=== PATIENT | female | born 1990 | race Two or more races ===

== ENCOUNTER 2016-11-19 00:09 | Outpatient (CLI) | payer SELFPAY ==
[~2016-11-19] VITALS: Ht 154.9 cm; Wt 52.0 kg
[~2016-11-19 00:09] MED LIST: TERCONAZOLE-7 VAGINAL CREAM PV SCH
[2016-11-19 00:31] VITALS: BP 119/67
[2016-11-19] MEDS ORDERED: PRENTAB9 PO (00:49)
[2016-11-19 02:16] LABS: BASO % 0.2 % (0.0-1.0); EOS # 0.1 K/mm3 (0.0-0.50); EOS % 1.3 % (0.0-3.0); LARGE UNSTAINED CELL # 0.1 K/mm3 (0.0-0.4); LARGE UNSTAINED CELL % 1.8 % (0.0-4.0); LYMPH # 1.6 K/mm3 (1.5-6.5); LYMPH % 23.9 % (24.0-44.0); MEAN CORPUSCULAR HEMOGLOBIN 25.1 pg (27.0-33.0); MEAN CORPUSCULAR HGB CONC 32.8 g/dl (32.0-36.5); MEAN CORPUSCULAR VOLUME 76.6 fl (80.0-96.0); MONO # 0.4 K/mm3 (0.0-0.8); MONO % 6.3 % (0.0-5.0); NEUTROPHILS # 4.4 K/mm3 (1.8-7.7); NEUTROPHILS % 66.6 % (36.0-66.0); PLATELET COUNT, AUTOMATED 271 k/mm3 (150-450); RED CELL DISTRIBUTION WIDTH 13.8 % (11.5-14.5); WHITE BLOOD COUNT 6.5 K/mm3 (4.0-10.0)
[2016-11-19 03:04] LABS: CONTROL LINE INT CTR LINE PRESENT; HIV SCRN NEGATIVE (NEGATIVE); HIV SCRN1 NEGATIVE (NEGATIVE)
[2016-11-19 03:36] VITALS: BP 117/58
--- NOTE | 2016-11-19 03:40 | REPUSA ---
CLINICAL HISTORY: contractions. TECHNIQUE: Realtime sonographic images were obtained in multiple projections via TA approach. The exa mination was performed by the wall taper helper and still images were submitted for interpretation. COMMENTS: Single, live intrauterine gestation. Transverse lie of the fetus. The head there is to the maternal left position. motion was identified. heart rate 153 beats per minute. Anterior placenta. Unremarkable amniotic fluid. The cervix measures 4.9 cm. The lateral ventricle measures 7.8 mm. Unremarkable maternal adnexa/cul-de-sac. Estimated gestational age 27 weeks and one day. Estimated delivery date on 02/17/2017. Estimated weight 1109 g. Amniotic fluid index 12.7 cm. IMPRESSION: Single, live intrauterine gestation. Thank you for your kind referral of this patient.
[2016-11-19 05:11] VITALS: BP 115/66
[2016-11-21 11:29] LABS: HBsAg Prenatal NEGATIVE (NEGATIVE)
== END 2016-11-19 04:10 | disposition home or self-care (01) ==
LOC: M LDO 00:09
PROVIDERS: ATTEND Advanced Practice Midwife
DX: O62.0 Primary inadequate contractions (principal); Z3A.27 27 weeks gestation of pregnancy; O09.72 Supervision of high risk pregnancy due to social problems, second trimester; Z63.0 Problems in relationship with spouse or partner; O09.32 Supervision of pregnancy with insufficient antenatal care, second trimester; O9A.312 Physical abuse complicating pregnancy, second trimester

== ENCOUNTER 2017-01-31 02:39 | Inpatient (IN) | payer OTHER, SELFPAY ==
[~2017-01-31] VITALS: Ht 154.9 cm; Wt 59.0 kg
[2017-01-31] VITALS (13 sets, daily range): BP systolic 111–149; BP diastolic 62–86
[~2017-01-31 02:39] MED LIST changes: +PRENTAB9 PO; -TERCONAZOLE-7 VAGINAL CREAM PV SCH
[2017-01-31] MEDS ORDERED: PENICILLIN G POTASSIUM IV 5 MU in D5W MINI-BAG PLUS 100 ML IV STA (04:07)
[2017-01-31] MEDS ORDERED: LACTATED RINGER'S 1000 ML IV STA (04:07)
[2017-01-31] MEDS ORDERED: LR 1,000 ML IV SCH (04:07)
[2017-01-31 04:38] LABS: MEAN CORPUSCULAR HEMOGLOBIN 21.4 pg (27.0-33.0); MEAN CORPUSCULAR HGB CONC 30.6 g/dl (32.0-36.5); MEAN CORPUSCULAR VOLUME 69.9 fl (80.0-96.0); RED CELL DISTRIBUTION WIDTH 17.1 % (11.5-14.5); WHITE BLOOD COUNT 7.2 K/mm3 (4.0-10.0)
[2017-01-31] MEDS ORDERED: OXYTOCIN 30 UNITS IN 0.9% NaCl 500ML IV BAG (J2590) As Ordered ONE (04:42)
[2017-01-31 05:16] LABS: CONTROL LINE INT CTR LINE PRESENT; HIV SCRN NEGATIVE (NEGATIVE); HIV SCRN1 NEGATIVE (NEGATIVE)
[2017-01-31] MEDS ORDERED: FENTANYL 2MCG/ML ROPIVACAINE 0.2% IN 0.9% NACL 200ML IVBAG As Ordered ONE (05:31)
[2017-01-31] MEDS ORDERED: OXYTOCIN DRIP 30 UNITS in APPROPRIATE DILUENT 1 EA IV SCH (06:58)
[2017-01-31] MEDS ORDERED: MEASLES,MUMPS,RUBELLA VACCINE INJ (MMR-II) (90707) SC SCH (07:00)
[2017-01-31] MEDS ORDERED: RHOGAM 300 MCG (1500 IU) INJ (J2790) IM SCH (07:00)
[2017-01-31] MEDS ORDERED: METHYLERGONOVINE MALEATE 0.2 MG TAB PO PRN (07:00)
[2017-01-31] MEDS ORDERED: ACETAMINOPHEN 500 MG TAB PO PRN (07:00)
[2017-01-31] MEDS ORDERED: DIBUCAINE 1% OINTMENT 30GM TOP PRN (07:00)
[2017-01-31] MEDS ORDERED: ANUSOL HC CREAM 30GM TOP PRN (07:00)
--- NOTE | 2017-01-31 07:22 | DNPDOC ---
[facility] Delivery Note Delivery Note DATE OF DELIVERY: Jan 31, 2017 at 0630 PREDELIVERY DIAGNOSIS: 38-2/7 weeks' gestation and labor. PROCEDURE: [Spontaneous vaginal delivery]. METAL BONDING PRESS OPERATOR: Abhijeet Klein CNM, DEVIN ANESTHESIA: Epidural. ESTIMATED BLOOD LOSS: 450 mL. FINDINGS: 5 pound 11 ounce female , Score 9/9, nuchal cord times 1 loose. DELIVERY SUMMARY: Patient is a 26-year-old 4 now para 2-1-1-3 who was admitted to labor and delivery with complaints of spontaneous rupture of membrane and contractions. She obtained an epidural for pain management. She progressed to fully dilated at 0626. She pushed to a living female at 0630 in the OA position with restitution to LOT. The anterior shoulder delivered with ease and the corpus immediately followed. A nuchal cord was noted loose 1. The baby was placed on maternal abdomen active and crying without stimulation. The cord was clamped 2 and cut by father of the baby after pulsation ceased. A three-vessel cord was noted. The placenta delivered spontaneously at 0635 with trailing membranes that were removed. Uterine hemostasis was achieved by fundal massage and rapid infusion of IV Pitocin. Inspection of the perineum and the vagina was done and found to have a right labial abrasion and a perineal abrasion that was not repaired. EBL for 50. Apgars 9 and 9. Weight 2580 g, 5 lbs. 11 oz. Mom is going to breast-feed . Mom and baby are in stable condition. ABHIJEET KLEIN CNM Jan 31, 2017 07:22
[2017-01-31] MEDS: DOCUSATE SODIUM 100 MG CAP PO SCH (09:00)
[2017-01-31] MEDS: FERROUS SULFATE 325MG TAB PO SCH ×2 (09:00→20:51)
[2017-01-31] MEDS: PRENATAL VITAMINS CHEWABLE TABLET PO SCH (09:00)
[2017-01-31] MEDS ORDERED: PENICILLIN G POTASSIUM IV 2.5 MU in D5W 100 ML IV SCH (09:00)
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
[2017-01-31] MEDS: IBUPROFEN 800 MG TAB PO PRN (19:57)
[2017-02-01 05:49] VITALS: BP 136/79
[2017-02-01] MEDS: FERROUS SULFATE 325MG TAB PO SCH ×2 (10:13→21:01)
[2017-02-01] MEDS: DOCUSATE SODIUM 100 MG CAP PO SCH (10:13)
[2017-02-01] MEDS: PRENATAL VITAMINS CHEWABLE TABLET PO SCH (10:13)
[2017-02-01] MEDS: IBUPROFEN 800 MG TAB PO PRN (15:56)
[2017-02-01 18:12] VITALS: BP 115/55
[2017-02-02 06:08] VITALS: BP 130/59
[2017-02-02 06:58] LABS: MEAN CORPUSCULAR HEMOGLOBIN 22.1 pg (27.0-33.0); MEAN CORPUSCULAR HGB CONC 31.2 g/dl (32.0-36.5); RED CELL DISTRIBUTION WIDTH 17.6 % (11.5-14.5); WHITE BLOOD COUNT 12.1 K/mm3 (4.0-10.0)
[2017-02-02] MEDS: PRENATAL VITAMINS CHEWABLE TABLET PO SCH (08:23)
[2017-02-02] MEDS: FERROUS SULFATE 325MG TAB PO SCH (08:23)
[2017-02-02] MEDS: DOCUSATE SODIUM 100 MG CAP PO SCH (08:23)
[2017-02-02] MEDS ORDERED: ACET50TA PO (10:24)
[2017-02-02] MEDS ORDERED: IBUP-1114 PO (10:24)
[2017-02-02] MEDS ORDERED: FERR325T3 PO (10:24)
== END 2017-02-02 10:49 | disposition home or self-care (01) | DRG 775 ==
LOC: M LDO 02:39 → M LDI 03:55 → M OBS 09:03
PROVIDERS: ADMIT Advanced Practice Midwife; ATTEND Advanced Practice Midwife
PROC: 10E0XZZ Delivery of Products of Conception, External Approach (ICD-10-PCS; principal; 2017-01-31)
DX: O69.82X0 Labor and delivery complicated by other cord entanglement, without compression, not applicable or unspecified (principal); Z37.0 Single live birth; Z3A.38 38 weeks gestation of pregnancy; Z79.899 Other long term (current) drug therapy; O70.0 First degree perineal laceration during delivery

== ENCOUNTER 2019-06-04 17:23 | Day surgery (SDC) | payer OTHER ==
[~2019-06-04] VITALS: Ht 154.9 cm; Wt 48.6 kg
[~2019-06-04 17:23] MED LIST changes: +FERR325T3 PO; +IBUP-1114 PO; +MAPA500T2 PO
[2019-06-04 18:48] LABS: BASO % 0.4 % (0.0-1.0); EOS # 0.1 10^3/uL (0.0-0.5); EOS % 1.9 % (0.0-3.0); HEMOGLOBIN 12.2 g/dl (12.0-15.5); LYMPH % 34.6 % (24.0-44.0); MEAN CORPUSCULAR HEMOGLOBIN 28.9 pg (27.0-33.0); MEAN CORPUSCULAR HGB CONC 33.9 g/dl (32.0-36.5); MEAN CORPUSCULAR VOLUME 85.3 fl (80.0-96.0); MONO # 0.4 10^3/uL (0.0-0.8); MONO % 6.7 % (0.0-5.0); NEUTROPHILS # 3.2 10^3/uL (1.5-8.5); NEUTROPHILS % 56.2 % (36.0-66.0); PLATELET COUNT, AUTOMATED 244 10^3/uL (150-450); RED BLOOD COUNT 4.22 10^6/uL (4.00-5.40); WHITE BLOOD COUNT 5.7 10^3/uL (4.0-10.0)
[2019-06-04 19:05] LABS: BLOOD UREA NITROGEN 2 MG/DL (7-18); CALCIUM LEVEL 9.1 MG/DL (8.5-10.1); CARBON DIOXIDE LEVEL 27 MEQ/L (21-32); CHLORIDE LEVEL 108 MEQ/L (98-107); CREATININE FOR GFR 0.56 MG/DL (0.55-1.30); GLOMERULAR FILTRATION RATE > 60.0 (>60); GLUCOSE, FASTING 79 MG/DL (70-100); POTASSIUM SERUM 3.2 MEQ/L (3.5-5.1); SODIUM LEVEL 140 MEQ/L (136-145)
--- NOTE | 2019-06-04 20:36 | REPVR ---
PROCEDURE INFORMATION: Exam: US First Trimester, Transabdominal Exam date and time: 06/04/2019 7:41 PM Clinical history: 28 years old, female; Lmp or gestational age (in weeks): 01/01/19; Antepartum complications; Bleeding; ; Additional info: Vag bleeding TECHNIQUE: Imaging protocol: Real-time transabdominal obstetrical ultrasound of the maternal pelvis and a first trimester , less than 14 weeks 0 days, with image documentation. COMPARISON: No relevant prior studies available. FINDINGS: GESTATION: Gestation: There is a single large gestational sac in the uterus with poorly defined decidual reaction with an average sac diameter of 25 mm. A single pole is demonstrated dependently measuring 2.4 cm. Heart rate: There is absence cardiac activity. Placenta: Unremarkable. No subchorionic bleed. Amniotic fluid: Unremarkable. BIOMETRY: Estimated gestational age: Gestational age based on crown-rump length is 9 weeks 1 day. MATERNAL: Uterus: Unremarkable. Cervix: Unremarkable. Right adnexa: Right ovary measures 3 x 1.6 x 3.4 cm. Left adnexa: Left ovary measures 3.6 x 2.1 x 3.4 cm. Hypoechoic lesion in the left ovary measures 1.6 x 1.5 x 1.7 cm may represent residual corpus luteum. Intraperitoneal: No intraperitoneal free fluid. IMPRESSION: Findings consistent with early failure with retained products of conception demonstrated within the uterus. Electronically signed by: Timmy Rowland On 06/04/2019 20:36:35 PM
[2019-06-04] MEDS ORDERED: POTASSIUM CHLORIDE 10 MEQ SR TABLET PO ONE (22:30)
[2019-06-04 22:34] LABS: CHLAMYDIA DNA AMPLIFICATION NEGATIVE (NEGATIVE); GC DNA AMPLIFICATION NEGATIVE (NEGATIVE)
[2019-06-05] MEDS ORDERED: PROPOFOL 200 MG/20 ML VIAL As Ordered ONE ×2 (00:18→01:08)
[2019-06-05] MEDS ORDERED: KETOROLAC 60 MG/2 ML VIAL (J1885) As Ordered ONE ×3 (00:19→01:07)
[2019-06-05] MEDS ORDERED: MIDAZOLAM INJ 2 MG/2 ML VIAL (J2250) As Ordered ONE (00:19)
[2019-06-05] MEDS ORDERED: ONDANSETRON 4MG/2ML VIAL (J2405) As Ordered ONE (00:19)
[2019-06-05] MEDS ORDERED: dexameTHASONE 4 MG/ML 1ML VIAL (J1100) As Ordered ONE (00:19)
[2019-06-05] MEDS ORDERED: LIDOCAINE 2% INJ 100 MG/5 ML SDV (FOR ANES.) As Ordered ONE (00:19)
[2019-06-05] MEDS ORDERED: fentaNYL 100 MCG/2 ML INJECTION (J3010) As Ordered ONE (00:19)
[2019-06-05] MEDS ORDERED: ACETAMINOPHEN 650 MG SUPP As Ordered ONE (01:15)
[2019-06-05] MEDS ORDERED: OXYTOCIN INJ 10 UNITS/ML VIAL (J2590) As Ordered ONE (01:25)
[2019-06-05] MEDS ORDERED: LR 1,000 ML IV SCH (01:45)
[2019-06-05] MEDS ORDERED: fentaNYL 100 MCG/2 ML INJECTION (J3010) IV PRN (01:45)
[2019-06-05] MEDS ORDERED: ONDANSETRON 4MG/2ML VIAL (J2405) IV PRN (01:45)
[2019-06-05] MEDS ORDERED: PERCOCET 5MG/325MG TAB PO PRN (01:45)
[2019-06-05 02:40] VITALS: BP 117/64
[2019-06-05 03:10] VITALS: BP 117/58
--- NOTE | 2019-06-05 07:29 | HPE ---
DATE OF ADMISSION: 06/04/2019 This a 28-year-old 5, para 3, aborta one, LMP 01/01/2019 was seen in emergency room because of bleeding in and some cramping. PAST HISTORY: In 2010 spontaneous vaginal delivery female 36 weeks spontaneous rupture of membranes, 5 pounds 8 ounces. 2014 spontaneous vaginal delivery male. 40-week 6 pounds 8 ounces. 2016 spontaneous vaginal delivery female 38 weeks, 5 pounds 3 ounces. 2016 at 8 weeks had a spontaneous complete. OPERATIVE PROCEDURES: [place] teeth. MEDICAL ISSUES: No medical issues. She had an ultrasound today which was consistent with early failure retained products of conception with sac diameter of 25 mm which does not correlate with her LMP or her gestational age. Her quantitative beta hCG was 1763. Her electrolytes were normal. GFR was greater than 60, hemoglobin 12.2, hematocrit 36.0 and platelets were 244. PHYSICAL EXAMINATION: The os was open. There is some old and fresh blood. Uterus is appropriate for size, nontender, mobile and there is some active bleeding going on. Her blood pressure is 141/74, respirations are 16, pulse is 88 and she is afebrile at 98.9. The rest examination unremarkable. Normocephalic, atraumatic. Neck: Full range of motion. Pupils equal and reactive to light. Chest is clear bilaterally bases. No weak no CVA tenderness. Abdomen: Soft for quadrant bowel sounds were noted. She has no rashes, lesions or pruritus. No arthralgia, myalgia. No complaint joint pain. No cough, shortness of breath or dyspnea on exertion, nausea, vomiting, diarrhea or constipation. No urgency, frequency. The rest of the OIL BURNER REPAIRER and OB history and family history is unremarkable. In summary we have a lady with a missed with retained products of conception Our plan of management is to do a suction curettage. We discussed risks and benefits of surgery including hemorrhage, infection, perforation, , reoperation, the fact that she needs to be followed and monitored for quantitative beta hCG until they are zero. After answering all questions. 40-minute discussion. The patient signed the consent form. We await the operating time. IV was started and IV bolus of 500 normal saline was instituted.
[2019-06-05] MEDS ORDERED: KETOROLAC 30 MG/ML VIAL (J1885) IV PRN (07:30)
--- NOTE | 2019-06-13 19:12 | RO ---
DATE OF PROCEDURE: 06/05/2019 PREOPERATIVE DIAGNOSIS: Missed . POSTOPERATIVE DIAGNOSIS: Missed OPERATION PROPOSED: Suction curettage. OPERATION PERFORMED: Suction curettage. SURGEON: Dr. Yaw Parnell ACID CONDITIONER: ANESTHESIA: General. ESTIMATED BLOOD LOSS: Less than 50 mL DESCRIPTION OF PROCEDURE: After adequate time-out, prepped and draped in lithotomy position, bladder drained for 200 mL of clear urine. Acetaminophen suppository 1300 mg per rectum. Weighted speculum in vagina, single-tooth tenaculum on the anterior lip of the cervix. Uterus sounded to a depth of 12 cm, dilated to [place] 10, curved suction curette applied. Curettage until the cavity was smooth. Uterus was placed in anatomical position, well contracted under Pitocin. The patient is O positive, does not require RhoGAM. The patient was sent to recovery in good condition.
== END 2019-06-05 03:45 | disposition home or self-care (01) ==
LOC: M ED 17:23 → M SDC 17:24 → M PED 06-05 02:40 → M SDC 06-05 03:45
PROVIDERS: ATTEND Obstetrics & Gynecology
DX: O02.1 Missed abortion (principal); Z87.891 Personal history of nicotine dependence
CPT/HCPCS: 36415; 59821; 76801; 80048; 81001; 84702; 85025; 86850; 86900; 86901; 87210; 87661; 88305; 93976; 99284; J1100; J1885; J2250; J2405; J2590; J3010

== ENCOUNTER 2020-07-16 06:47 | Inpatient (IN) | payer OTHER ==
[2020-07-16] VITALS (26 sets, daily range): BP systolic 100–163; BP diastolic 50–88
[~2020-07-16] VITALS: Ht 154.9 cm; Wt 62.6 kg
[2020-07-16] MEDS ORDERED: LR 1,000 ML IV SCH (08:00)
[2020-07-16] MEDS ORDERED: OXYTOCIN DRIP 30 UNITS in IV 1 EA IV SCH (08:00)
[2020-07-16] MEDS ORDERED: LACTATED RINGER'S 1000 ML IV STA (08:00)
[2020-07-16] MEDS ORDERED: PENICILLIN G POTASSIUM IV 5 MU in D5W MINI-BAG PLUS 100 ML IV STA (08:00)
--- NOTE | 2020-07-16 08:34 | HPEPDOC ---
Obstetrical History & Physical General Date of Admission 07/16/2020 History of Present Illness 29 yo @ 40+1 by 14wk us who presents for labor check and found to have elevated BP ( 140-160) Not meeting criteria for Dx of GHTN yet. she reports regular painful contractions, denies vaginal bleeding or loss of fluids. she is feeling regular movements. She denies any new headaches, visual abnormalities, chest pain, worsening dyspnea, facial swelling, or upper extremity swelling. she has no other concerns. Information Provided By: Patient Care Care: Good Care Dating Final EDC: Jul 15, 2020 Final EDC by: 2nd trimester (US) Estimated Date of Confinement: Jul 15, 2020 Antepartum Course Diagnos(e)s 1. Elevated BP on admission 2. GBS positive with no penicillin allergy Height (inches): 61 Pre- weight (lbs.): 105 Admission Weight (lbs.): 142 Change in Weight (lbs.): 37 Past Medical History Past Obstetrical History : Past Obstetrical History: Multigravida Type of Delivery: Spontaneous Vaginal Del. Sex of Infant: Male Complications: No Past Medical History Medical History Denies Surgical History: Denies/None Family History Significant Family History: Hypertension Social History Marital Status: Family situation: Spouse/partner home Psychosocial History: No pertinent psych hx * Smoker: non-smoker Alcohol: Denies Drugs: denies Abuse Violence Screening Have you been hit/kicked/slapp: No Have you been sexually assault: No Imunizations Tdap status: current Influenza Status: needs Allergies Coded Allergies: shellfish derived (Verified Allergy, Severe, 07/16/20) Medications No Active Prescriptions or Reported Meds Physical Examination Physical Examination GENERAL: Alert and oriented times three. BREAST: . ABDOMEN: Gravid and non-tender to touch. FETUS: Is vertex by TAUS HEART RATE: Regular rate and rhythm. LUNGS: Normal work of breathing EXTREMITIES: No edema. SVE: 2/50/-3 Vital Signs/I&O Vital Signs Date Time Temp Pulse Resp B/P (MAP) Pulse Ox O2 Delivery O2 Flow Rate FiO2 07/16/20 07:33 98.4 118 20 99 Room Air 07/16/20 07:20 163/88 (113) Laboratory Data Urine Culture: No Growth, Other (GBS) Pertinent Laboratoy Data Blood Type: O+ RBC Antibody Screen: Negative HIV: Negative Hepatitis B: Negative Hepatitis C: Unknown Rapid Plasma Reagin: Nonreactive Rubella: Immune Varicella: Immune Chlamydia/Gonorrhea: Unknown Group B Streptococcus: Positive Quad Screen Test: Negative Cystic Fibrosis: Negative Anatomy Ultrasound Normal Anatomy: Yes Vaginal Examination Dilation: 2cm Effacement: 50% Station: -3 Cervical Consistency: Medium Cervical Position: Posterior Presentation: Cephalic presentation Assessment Variability: Moderate Accelerations: Positive Decelerations: None Tocometer Contractions: Yes Frequency: regular Duration: greater than 60 seconds Strength: palpated as moderate Multi-drug resistant Organism: No history of MDRO Assessment/Plan Assessment 29 yo @ 40+1 by 14wk us who presents for labor check and found to have elevated BP ( 140-160) Not meeting criteria for Dx of GHTN yet. Pelvis proven to 6lbs 8 oz. Pelvis Adequate for labor. Category I FHRT. APC: 1. GBS positive- no penicillin allergy 2. hx of labor x1 3. Elevated BP on admission- Pre labs pending SVE: /-3 GBS POS Cephalic by US EFW 3100g RH POS Plan Admit and orient. Maori Physiotherapist and consent. Diet: Clear Group B Streptococcus (GBS)pos- start penicillin Obtain rapid covid test Labs and intravenous (IV) per unit protocol. Counseled on Pitocin and induction of labor (IOL). Lactated Ringers (LR): Bolus 1000 mL, then at 125mL/hr. Anticipate normal spontaneous delivery () C-S as appropriate. Anesthesia to see Labor and Delivery Counseling Risks of labor and use of pitocin have been outlined to include (but not limited to) infection, uterine tetany with uterine rupture and/or distress, need for emergent delivery and possible hysterectomy, possible hemorrhage secondary to uterine atony which could be substantial enough to require blood transfusion with the inherent risks of hepatitis, AIDS, HIV infection as well as transfusion reaction. She understands the need for use of this induction method and desires to proceed. There is no evidence of cephalopelvic disproportion or distress, or any contraindication to the induction technique selected. JOSEFINA LAMAS MD Jul 16, 2020 08:34
[2020-07-16 08:59] LABS: HEMATOCRIT 32.1 % (36.0-47.0); HEMOGLOBIN 9.9 g/dl (12.0-15.5); MEAN CORPUSCULAR HEMOGLOBIN 23.7 pg (27.0-33.0); MEAN CORPUSCULAR HGB CONC 30.8 g/dl (32.0-36.5); PLATELET COUNT, AUTOMATED 246 10^3/uL (150-450); RED BLOOD COUNT 4.17 10^6/uL (4.00-5.40); WHITE BLOOD COUNT 9.6 10^3/uL (4.0-10.0)
[2020-07-16] MEDS: PRENATAL VITAMINS CHEWABLE TABLET PO SCH (09:00)
[2020-07-16] MEDS ORDERED: IRON27TA2 PO (09:02)
[2020-07-16] MEDS ORDERED: PRENTAB9 PO (09:02)
[2020-07-16] MEDS ORDERED: EFFE20TA PO (09:02)
[2020-07-16 09:07] LABS: ALT/SGPT 15 U/L (12-78); BILIRUBIN,TOTAL 0.2 MG/DL (0.2-1.0); CREATININE FOR GFR 0.54 MG/DL (0.55-1.30); GLOMERULAR FILTRATION RATE > 60.0 (>60); LDH LACTATE DEHYDROGENASE 193 U/L (84-246); URIC ACID 3.8 MG/DL (2.6-6.0)
[2020-07-16] MEDS ORDERED: FENTANYL 2MCG/ML ROPIVACAINE 0.2% IN 0.9% NACL 100ML IVBAG As Ordered ONE (10:05)
[2020-07-16] MEDS ORDERED: ONDANSETRON 4MG/2ML VIAL IV PRN (11:15)
[2020-07-16] MEDS ORDERED: FENTANYL/ROPIVACAINE/NACL BAG 100 ML EPIDURAL SCH (11:15)
[2020-07-16] MEDS ORDERED: EPIDURAL/PCA KEYS XX PRN (11:15)
[2020-07-16] MEDS ORDERED: ePHEDrine SULFATE 25 MG/5 ML(5MG/ML) SYRINGE IV PRN (11:15)
[2020-07-16] MEDS ORDERED: diphenhydrAMINE 50MG/ML VIAL (J1200) IV PRN (11:15)
[2020-07-16] MEDS ORDERED: REFRIGERATOR IV KEYS XX PRN (11:15)
[2020-07-16] MEDS ORDERED: NALOXONE INJ 0.4MG/1ML VIAL (J2310 PER 1MG) IV PRN (11:15)
[2020-07-16] MEDS ORDERED: LACTATED RINGER'S 1000 ML IV PRN (11:15)
[2020-07-16] MEDS ORDERED: EPIDURAL COMMENT XX SCH (11:15)
--- NOTE | 2020-07-16 11:37 | IPNPDOC ---
Obstetrical Progress Note Date of Service Jul 16, 2020 Subjective To room for assessment. patient has epidural in place and is feeling pressure with contractions. she has no concerns at this time FHT: 130, Mod ivana,+accels, occasional late decel0----cat II tracing SVE: 9/C/O tOCO: 3-4/10 Active labor. cat II tracing but overall reassuring status with moderate variability. GBS pos, PCN now for 3 hrs. will continue active management of labor. anticipate . Objective Vital Signs Date Time Temp Pulse Resp B/P (MAP) Pulse Ox O2 Delivery O2 Flow Rate FiO2 07/16/20 07:33 98.4 118 20 99 Room Air 07/16/20 07:20 163/88 (113) JOSEFINA LAMAS MD Jul 16, 2020 11:37
[2020-07-16] MEDS ORDERED: MOM 30ML SUSPENSION UDC PO PRN (12:00)
[2020-07-16] MEDS ORDERED: PENICILLIN G POTASSIUM IV 2.5 MU in IV 1 EA IV SCH (12:00)
[2020-07-16] MEDS ORDERED: IBUPROFEN 800 MG TAB PO PRN (12:00)
[2020-07-16] MEDS ORDERED: ANUSOL HC CREAM 30GM TOP PRN (12:00)
[2020-07-16] MEDS ORDERED: BENZOCAINE 20% HEMORRHOIDAL OINTMENT 28GM TUBE TOP PRN (12:00)
--- NOTE | 2020-07-16 12:10 | DNPDOC ---
[facility] Delivery Note Delivery Note DATE OF DELIVERY: 07/16/2020 PREDELIVERY DIAGNOSIS: 40-1/7 weeks' gestation and labor. POST DELIVERY DIAGNOSIS: Delivered. PROCEDURE: Spontaneous vaginal delivery SAUSAGE CUTTER: Dr. Joesfina Lamas ANESTHESIA: Epidural ESTIMATED BLOOD LOSS: 100 mL. FINDINGS: 7 pound 7 ounce ( 3370g) female infant, Score 9/9, nuchal cord times one. DELIVERY SUMMARY: Patient is a 29-year-old 6 now para 3023 who was admitted to labor and delivery in labor. She progressed to C/C/+2 and with good maternal effort delivered a viable . The infants head delivered OA. After delivery of the head, and the head was allowed to spontaneously restitute GINGER. tigh nuchal cord upon delivery of the head. anterior shoulders delivered with gentle downward traction followed by posterior shoulder and corpus without difficulty. Normal 3-vessel cord clamped x 2 and cut by FOB after 1 minute of delayed cord clamping. Spontaneous cry noted. Infant placed on maternal abdomen for [id number] Cord blood obtained. Placenta delivered spontaneously and inspection of the placenta demonstrated that it was intact. The cord insertion appeared normal. The uterus was cleared of all clots and debris. Fundal massage until firm. 30 units of Pitocin administered per protocol and the patient required no additional uterotonics. Inspection of cervix, perineum, and vaginal wall revealed no with good hemostasis. Repeat uterine examination noted uterine tone to be adequate and firm. Mom and infant stayed in L&D in hemodynamic stable condition upon my departure. Sponge, lap and needle count correct x 2 MARQUEZ LAMAS Staff JOSEFINA LAMAS MD Jul 16, 2020 12:09
[2020-07-16] MEDS: ACETAMINOPHEN 500 MG TAB PO PRN ×2 (12:55→20:11)
[2020-07-16] MEDS: DOCUSATE SODIUM 100MG CAPSULE PO SCH (20:11)
[2020-07-17] MEDS: ACETAMINOPHEN 500 MG TAB PO PRN ×2 (03:56→15:07)
[2020-07-17 06:00] VITALS: BP 133/76
[2020-07-17] MEDS: DOCUSATE SODIUM 100MG CAPSULE PO SCH ×2 (08:39→19:48)
[2020-07-17] MEDS: PRENATAL VITAMINS CHEWABLE TABLET PO SCH (08:39)
--- NOTE | 2020-07-17 10:12 | IPNPDOC ---
Progress Note Date of Service: Jul 17, 2020 Day#: 1 Progress Note SUBJECT: Kassidy is a 29-year-old 6 now Para 4-0-24 status post unco mplicated spontaneous vaginal delivery at 40-1/7 weeks' 7 pound 7 ounce ( 3370g) female infant, Score 9/9 doing well day # 1. She has been ambulating, voiding spontaneously without issue and tolerating regular diet. Breast feeding without issue. Reports lochia is minimal. OBJECTIVE: VITAL SIGNS: Within normal limits, afebrile. Alert and oriented times three. normal work of breathing Heart rate: Regular rate and rhythm ASSESSMENT: Kassidy is a 29-year-old 6 now Para 4-0-24 status post uncomplicated spontaneous vaginal delivery at 40-1/7 weeks' 7 pound 7 ounce ( 3370g) female , Score 9/9 doing well day # 1. Vitals within normal limits, afebrile, hemodynamically stable with no evidence of infection. PLAN: 1. Discharge to home tomorrow 2. Tylenol and Motrin for pain. 3. Encourage breast feeding and ambulation. 4. ocp for contraception for now- start after 4 weeks ( increased risk of VTE before then) 5. Routine PP visit in 6 weeks in clinic. 6. Discussed return precautions at length. VS, I&O, 24H, Fishbone Vital Signs/I&O Vital Signs Date Time Temp Pulse Resp B/P (MAP) Pulse Ox O2 Delivery O2 Flow Rate FiO2 07/17/20 06:00 98.0 71 16 133/76 (95) 07/16/20 18:00 100 Room Air I&O- Last 24 Hours up to 6 AM 07/17/20 06:00 Intake Total 1812 ml Output Total 950 ml Balance 862 ml JOSEFINA LAMAS MD Jul 17, 2020 10:12
[2020-07-18] MEDS: ACETAMINOPHEN 500 MG TAB PO PRN (04:13)
[2020-07-18 06:00] VITALS: BP 118/70
--- NOTE | 2020-07-18 07:56 | IPNPDOC ---
Progress Note Date of Service: Jul 18, 2020 Day#: 2 Progress Note Kassidy is a 29-year-old 6 now Para 4-0-2-4 status post uncomplicated spontaneous vaginal delivery at 40-1/7 weeks' 7 pound 7 ounce ( 3370g) female infant, Score 9/9 doing well day # 2. She has been ambulating, voiding spontaneously without issue and tolerating regular diet. Breast feeding and supplying with formula. Reports lochia is minimal. OBJECTIVE: VITAL SIGNS: Within normal limits, afebrile. Alert and oriented times three. normal work of breathing Heart rate: Regular rate and rhythm ASSESSMENT: Kassidy is a 29-year-old 6 now Para 4-0-2-4 status post uncomplicated spontaneous vaginal delivery at 40-1/7 weeks' 7 pound 7 ounce ( 3370g) female , Score 9/9 doing well day # 2. Vitals within normal limits, afebrile, hemodynamically stable with no evidence of infection. PLAN: 1. Discharge to home today 2. Tylenol and Motrin for pain. 3. Encourage breast feeding and ambulation. 4. ocp for contraception for now- start after 4 weeks ( increased risk of VTE before then) 5. Routine PP visit in 6 weeks in clinic. 6. Discussed return precautions at length. VS, I&O, 24H, Fishbone Vital Signs/I&O Vital Signs Date Time Temp Pulse Resp B/P (MAP) Pulse Ox O2 Delivery O2 Flow Rate FiO2 07/18/20 06:00 97.9 63 18 118/70 (86) 96 Room Air I&O- Last 24 Hours up to 6 AM 07/18/20 05:59 Intake Total 720 ml Balance 720 ml JOSEFINA LAMAS MD Jul 18, 2020 07:56
[2020-07-18] MEDS ORDERED: IBUP80TA PO (07:59)
[2020-07-18] MEDS ORDERED: ACET-683 PO (07:59)
[2020-07-18] MEDS ORDERED: DOK1CAP7 PO (07:59)
[2020-07-18] MEDS: DOCUSATE SODIUM 100MG CAPSULE PO SCH (08:12)
[2020-07-18] MEDS: PRENATAL VITAMINS CHEWABLE TABLET PO SCH (08:12)
[2020-07-18 11:15] VITALS: BP 122/68
== END 2020-07-18 10:55 | disposition home or self-care (01) | DRG 807 ==
LOC: M LDO 06:47 → M LDI 08:05 → M OBS 14:35
PROVIDERS: ADMIT Obstetrics & Gynecology; ATTEND Obstetrics & Gynecology
PROC: 10E0XZZ Delivery of Products of Conception, External Approach (ICD-10-PCS; principal; 2020-07-16)
DX: O99.824 Streptococcus B carrier state complicating childbirth (principal); Z37.0 Single live birth; Z3A.40 40 weeks gestation of pregnancy; O48.0 Post-term pregnancy; O69.1XX0 Labor and delivery complicated by cord around neck, with compression, not applicable or unspecified

== ENCOUNTER 2021-02-20 15:14 | Emergency (ER) | payer OTHER ==
[~2021-02-20] VITALS: Ht 154.9 cm; Wt 58.3 kg
[~2021-02-20 15:14] MED LIST changes: +ACET-683 PO; +DOK1CAP7 PO; +EFFE20TA PO; +IBUP80TA PO; +IRON27TA2 PO
[2021-02-20] MEDS ORDERED: NS 1,000 ML IV ONE (16:15)
[2021-02-20 16:45] LABS: APPEARANCE, URINE CLEAR (CLEAR); BACTERIA, URINE AUTO NEGATIVE (NEGATIVE); BILIRUBIN, URINE AUTO NEGATIVE (NEGATIVE); BLOOD, URINE BLOOD NEGATIVE (NEGATIVE); COLOR, URINE YELLOW (YELLOW); GLUCOSE, URINE (UA) AUTO NEGATIVE (NEGATIVE); KETONE, URINE AUTO 1+ mg/dL (NEGATIVE); LEUKOCYTE ESTERASE, URINE AUTO NEGATIVE (NEGATIVE); NITRITE, URINE AUTO NEGATIVE (NEGATIVE); PROTEIN, URINE AUTO NEGATIVE (NEGATIVE); RBC, URINE AUTO 1 /HPF (0-3); SPECIFIC GRAVITY URINE AUTO 1.009 (1.002-1.035); SQUAMOUS EPITHELIAL CELL UR AU 0 /HPF (0-6); UROBILINOGEN, URINE AUTO 0.2 mg/dL (0.0-2.0); WBC, URINE AUTO 0 /HPF (0-3)
[2021-02-20 16:48] LABS: BASO % 0.4 % (0.0-1.0); EOS % 0.5 % (0.0-3.0); HEMATOCRIT 37.3 % (36.0-47.0); HEMOGLOBIN 12.5 g/dl (12.0-15.5); LYMPH # 1.5 10^3/uL (1.5-5.0); MEAN CORPUSCULAR HEMOGLOBIN 26.7 pg (27.0-33.0); MEAN CORPUSCULAR HGB CONC 33.5 g/dl (32.0-36.5); MEAN CORPUSCULAR VOLUME 79.7 fl (80.0-96.0); MONO # 0.3 10^3/uL (0.0-0.8); MONO % 5.7 % (2.0-8.0); NEUTROPHILS # 3.6 10^3/uL (1.5-8.5); PLATELET COUNT, AUTOMATED 235 10^3/uL (150-450); RED BLOOD COUNT 4.68 10^6/uL (4.00-5.40); WHITE BLOOD COUNT 5.5 10^3/uL (4.0-10.0)
[2021-02-20 16:59] LABS: INR 0.91; PROTHROMBIN TIME 12.7 SECONDS (12.7-14.5)
[2021-02-20 17:00] LABS: PARTIAL THROMBOPLASTIN TIME 31.5 SECONDS (25.9-37.0)
[2021-02-20 17:10] LABS: ALBUMIN 3.6 GM/DL (3.2-5.2); ALT/SGPT 16 U/L (12-78); BILIRUBIN,DIRECT < 0.1 MG/DL (0.0-0.2); BILIRUBIN,TOTAL 0.3 MG/DL (0.2-1.0); BLOOD UREA NITROGEN 4 MG/DL (7-18); CALCIUM LEVEL 8.8 MG/DL (8.5-10.1); CARBON DIOXIDE LEVEL 25 MEQ/L (21-32); CHLORIDE LEVEL 106 MEQ/L (98-107); CREATININE FOR GFR 0.42 MG/DL (0.55-1.30); GLOMERULAR FILTRATION RATE > 60.0 (>60); GLUCOSE, FASTING 79 MG/DL (70-100); MAGNESIUM LEVEL 1.9 MG/DL (1.8-2.4); POTASSIUM SERUM 3.5 MEQ/L (3.5-5.1); SODIUM LEVEL 139 MEQ/L (136-145); TOTAL PROTEIN 7.7 GM/DL (6.4-8.2); URIC ACID 2.6 MG/DL (2.6-6.0)
[2021-02-20] MEDS ORDERED: NORCO, ANEXSIA 5/325MG TABLET (HYDROcodone/ACETAMINOPHEN) PO ONE (17:40)
[2021-02-20] MEDS ORDERED: ONDA4TAB6 PO (18:51)
[2021-02-20] MEDS ORDERED: FIOR1CAP PO (18:51)
[2021-02-20 19:00] VITALS: BP 114/61
--- NOTE | 2021-02-22 19:26 | ECGEPIP ---
[facility] - ED Test Date: 2021-02-20 Pat Name: GOPAL WARDDepartment: Room: - Gender: Female Thread Drawer: : 1990 Requested By: LEÓN HERNANDEZ PA-C Order Number: [id number] Reading MD: Mervat Davila Measurements Intervals [place] Rate: 72 P: 48 VA: 164 QRS: 58 QRSD: 80 T: 37 QT: 390 QTc: 427 Interpretive Statements Normal sinus rhythm No prior Electronically Signed on 02-22-2021 19:26:33 EDT by Mervat Davila
== END 2021-02-20 19:08 | disposition home or self-care (01) ==
LOC: M ED 15:14
DX: O99.891 Other specified diseases and conditions complicating pregnancy (principal); R51.9 Headache, unspecified; Z3A.17 17 weeks gestation of pregnancy